=== PATIENT | female | born 1960 | race Caucasian/White ===

== ENCOUNTER 2024-09-30 13:49 | Outpatient (CLI) | payer BC, MEDICAID ==
[2024-09-30 14:33] LABS: BASOPHILS % (AUTO) 0.6 % (0-1); EOSINOPHILS # (AUTO) 0.2 X10'3 (0-0.9); EOSINOPHILS % (AUTO) 2.5 % (0-6); HEMATOCRIT 44.4 % (35.0-45.0); LYMPHOCYTES # (AUTO) 3.2 X10'3 (1.1-4.8); LYMPHOCYTES % (AUTO) 46.4 % (21-51); MEAN CORPUSCULAR HGB CONC 33.8 g/dL (33.0-36.5); MEAN CORPUSCULAR VOLUME 91.8 FL (78-98); MEAN PLATELET VOLUME 8.5 FL (7.4-10.4); MONOCYTES # (AUTO) 0.3 X10'3 (0-0.9); MONOCYTES % (AUTO) 4.3 % (2-12); NEUTROPHILS # (AUTO) 3.2 X10'3 (1.8-7.7); NEUTROPHILS % (AUTO) 46.2 % (42-75); PLATELET COUNT 167 X10'3 (140-440); RED BLOOD COUNT 4.84 X10'6 (4.20-5.60); WHITE BLOOD COUNT 6.9 X10'3 (4.5-11.0)
[2024-09-30 15:01] LABS: ALANINE AMINOTRANSFERASE 40 U/L (12-78); ALBUMIN 3.8 G/DL (3.4-5.0); ALKALINE PHOSPHATASE 75 IU/L (46-116); ANION GAP 11 (8-16); ASPARTATE AMINO TRANSFERASE 31 U/L (10-37); BLOOD UREA NITROGEN 9 MG/DL (7-18); BUN/CREATININE RATIO 11.1 (10.0-20.0); CALCIUM 9.1 MG/DL (8.5-10.1); CHLORIDE 106 MMOL/L (99-107); CHOL/HDL RATIO 4.3 (0.00-4.99); CHOLESTEROL 171 MG/DL (0-200); CREATININE 0.81 MG/DL (0.40-0.90); FERRITIN 354 NG/ML (8-252); FREE T4 (FREE THYROXINE) 1.11 NG/DL (0.73-1.40); GLUCOSE 96 MG/DL (70-104); HDL CHOLESTEROL 40 MG/DL (35-60); LDL CHOLESTEROL 105 MG/DL (50-100); POTASSIUM 3.6 MMOL/L (3.5-5.1); SODIUM 142 MMOL/L (135-145); THYROID STIMULATING HORMONE 3.43 ulU/ml (0.34-4.50); TOTAL CARBON DIOXIDE 25.3 MMOL/L (24-32); TOTAL PROTEIN 7.6 G/DL (6.4-8.2); TRIGLYCERIDES 107 MG/DL (20-135); eGFR 71 ML/MIN
[2024-09-30 15:20] LABS: % IRON SATURATION 21 % (11-46); IRON 58 UG/DL (49-151); TOTAL IRON BINDING CAPACITY 274 UG/DL (259-388)
== END 2024-09-30 23:59 | disposition home or self-care (01) ==
LOC: RAD 13:49
PROVIDERS: ATTEND Physician Assistant
DX: E11.9 Type 2 diabetes mellitus without complications (principal)
CPT/HCPCS: 36415; 80053; 80061; 82306; 82607; 82728; 82746; 83036; 83540; 83550; 84439; 84443; 85025; 85651; 86038; 86140; 86431

== ENCOUNTER 2025-05-22 00:56 | Emergency (ER) | payer BC, MEDICAID ==
[~2025-05-22] VITALS: Ht 167.6 cm; Wt 85.0 kg
--- NOTE | 2025-05-22 03:16 | Physician Documentation ---
History of Present Illness ~ Chief Complaint: Knee Pain Stated Complaint: KNEE PAIN Time Seen by : 02:57 HPI 65 y/o F with PMH L knee replacement x2, osteoarthritis, R femoral neck repair presenting with four hours of L knee pain. She was using a motorized wheelchair and accidentally leaned into the joystick, her legs struck a door and her L knee was trapped in the doorframe for about 1 minute. She alternated ice and heat for 1 hour and took an Ambien and Ativan earlier, but rates her pain at a 9/10. She has noticed a new bump on the lateral aspect of the L knee. She also endorses R hip, R shoulder, and low back pain. Tetanus witin 5 years: No Medication Reconciliation Scheduled PRN Oxycodone Hcl IR* (Oxycodone IR*), 1 TAB PO Q12H PRN PRN for pain Past Medical History Past Medical History: Arthritis, Chronic Pain, Fibromyalgia, Osteoarthritis Past Surgical History: orthopedic surgeries Review of Systems All Other Systems at this time: Reviewed and Negative Musculoskeletal: Reports: joint pain, joint swelling Physical Exam Vital Signs: Temperature: 97.8, Source: Temporal, Heart Rate: 91, Respiratory Rate: 17, BP: 101/56, Pulse Oximetry: 97, Weight: 85.000 Physical Exam General: Awake and Alert, no acute distress. HEENT: Conjunctiva pink, Sclera clear, Mucus Membranes moist. Resp: Unlabored Heart: Regular Rate and rhythm Abdomen: Soft and non tender no organomegaly Extremities: No cyanosis,clubbing. L knee bony tenderness to palpation, no erythema or edema. Bruising at and above the L popliteal fossa. R hip unremarkable. Skin: Warm and Dry. Progress Results/Orders Results/Orders Orders - CJ MOTLEY MD Knee 3 Vws (05/22/25 02:12) Completed Orders - CJ MOTLEY MD Knee 3 Vws (05/22/25 02:12) Oxycodone Immed Release Tablet (Oxy Ir T (05/22/25 03:35) D-Dimer (05/22/25 04:19) Medications Received in ER Medications (Trade) Dose Ordered Sig/Matthew Route PRN Reason Start Time Stop Time Status Last Admin Dose Admin (OXY IR tablet) 5 mg ONCE ONCE PO 05/22/25 03:35 05/22/25 03:36 DC 05/22/25 03:35 5 MG Vital Signs 05/22/25 05/22/25 05/22/25 01:23 03:35 04:27 Temp 97.8 97.8 Pulse 91 81 Resp 17 18 17 B/P (MAP) 101/56 112/66 Pulse Ox 97 99 Laboratory Tests Test 05/22/25 04:40 D-Dimer 0.43 D-Dimer Comment EKG/XRAY/CT/US/VASC/MRI Bone/Soft Tissue X-Ray (Ext.) : Additional Comment I personally interpreted the x-ray, and it shows: No fracture, dislocation, or hardware malfunction Medical Decision Making Additional information obtaine: N/A Findings na General Diff Dx:Considerations: Include: Abrasion, Fracture Knee Diff Dx:Considerations: Include: Arthritis Ankle Diff Dx:Considerations: Include: Hematoma Foot Diff Dx:Considerations: Include: Laceration Toe Diff Dx:Considerations: Include: Fracture Additional Comment The patient presents with knee pain after an injury. Per her history and exam this seems likely a contusion. X-ray does not show a fracture or problem with her hardware. She will be given symptomatic treatment and pain control. She later express concern for possible DVT in her legs. She wanted to do a D-dimer test to rule this out, did not want to do an ultrasound. A D-dimer was obtained which was normal. DVT is unlikely. She will follow up with the primary doctor for further evaluation Departure Time of Disposition: 04:19 Disposition: 01 HOME / SELF CARE / HOMELESS Impression: Primary Impression: Knee pain Condition: Stable Discharge Instructions: Acute Knee Pain, Adult Referrals: NO PRIMARY CARE PROVIDER (PCP) Prescriptions Oxycodone Hcl IR* (Oxycodone IR*) 5 Mg Tablet 1 TAB PO Q12H PRN PRN for pain for 5 Days, #10 TAB Prov: CJ MOTLEY MD 05/22/25 Education Educated: Patient Educated regarding: diagnosis Signature Scribe Signature: [email or web address] Attestation: CJ Song MD May 22, 2025 03:16
[2025-05-22] MEDS: oxyCODONE IR 5mg (immed. release) tablet PO ONE (03:35)
[2025-05-22] MEDS ORDERED: OXYC-658 PO (04:20)
[2025-05-22 04:27] VITALS: BP 112/66; PULSE 81; RESP 17; TEMP 97.8; O2SAT 99
--- NOTE | 2025-05-22 05:14 | RADIOLOGY REPORT ---
CLINICAL INDICATION: LT KNEE INJURY TECHNIQUE: DI KNEE 3 VWS COMPARISON: None FINDINGS/IMPRESSION: : Hardware status post total knee arthroplasty without evidence of complication. There is no evidence of acute fracture or dislocation. Soft tissues are unremarkable.
== END 2025-05-22 04:29 | disposition home or self-care (01) ==
LOC: ER 00:56
DX: M25.562 Pain in left knee (principal); G89.29 Other chronic pain; M79.7 Fibromyalgia; Z98.890 Other specified postprocedural states
CPT/HCPCS: 36415; 73562; 85379; 99284